=== PATIENT | male | born 1955 | race Caucasian/White ===

== ENCOUNTER 2023-11-15 21:43 | Inpatient (IN) | payer MEDICARE, OTHER ==
[~2023-11-15] VITALS: Ht 182.9 cm; Wt 70.8 kg
[2023-11-16] MEDS ORDERED: SERT-162 PO (00:09)
[2023-11-16] MEDS ORDERED: CARV6 PO (00:09)
[2023-11-16] MEDS ORDERED: ATOR40TA28 PO (00:09)
[2023-11-16] MEDS ORDERED: TICA90TA PO (00:09)
[2023-11-16] MEDS ORDERED: EZET10TA57 PO (00:09)
[2023-11-16] MEDS ORDERED: AMLO-258 PO (00:09)
[2023-11-16] MEDS ORDERED: SENN-376 PO (00:09)
[2023-11-16] MEDS ORDERED: FINA-27 PO (00:09)
[2023-11-16] MEDS ORDERED: TAMS0.4C94 PO (00:09)
[2023-11-16] MEDS ORDERED: LANS-78 PO (00:09)
[2023-11-16] MEDS ORDERED: LOSA-382 PO (00:09)
[2023-11-16] MEDS ORDERED: BUPR-514 PO (00:09)
[2023-11-16] MEDS ORDERED: ASPI-1450 PO (00:09)
[2023-11-16] MEDS ORDERED: MELA5TAB40 PO (00:09)
[2023-11-16 00:16] LABS: BASOPHILS % (AUTO) 0.8 % (0.0-2.0); EOSINOPHILS % (AUTO) 3.8 % (1.0-6.0); HEMATOCRIT 36.1 % (41-53); HEMOGLOBIN 11.5 g/dL (13.5-17.5); LYMPHOCYTES # (AUTO) 2.7 K/uL (1.0-4.8); LYMPHOCYTES % (AUTO) 29.7 % (22.0-44.0); MEAN CORPUSCULAR HEMOGLOBIN 25.8 pg (26.0-34.0); MEAN CORPUSCULAR HGB CONC 31.7 G/dL (31.0-37.0); MEAN CORPUSCULAR VOLUME 81 fL (80-100); MONOCYTES # (AUTO) 0.8 K/uL (0.1-1.0); MONOCYTES % (AUTO) 8.6 % (2.0-9.0); NEUTROPHILS # (AUTO) 5.2 K/uL (1.8-7.7); NEUTROPHILS % (AUTO) 57.1 % (40.0-70.0); PLATELET COUNT (AUTO) 189 K/uL (150-450); RED BLOOD CELL COUNT(AUTO) 4.44 MIL/uL (4.50-5.90); RED CELL DISTRIBUTION WIDTH 17.1 % (11.5-14.5); WHITE BLOOD COUNT (AUTO) 9.2 K/uL (4.5-11.0)
[2023-11-16 00:21] LABS: ANION GAP 9 mmol/L (8-16); CALCIUM, TOTAL 9.1 mg/dL (8.8-10.5); CARBON DIOXIDE 27 mmol/L (22-29); CHLORIDE 105 mmol/L (98-107); CREATININE 1.72 mg/dL (0.60-1.30); GLOMERULAR FILTR. RATE CALC 40 mL/min (>60); GLUCOSE,RANDOM 102 mg/dL (70-110); POTASSIUM 3.8 mmol/L (3.5-5.1); SODIUM SERUM 141 mmol/L (136-145); UREA NITROGEN, BLOOD 31 mg/dL (7-18)
[2023-11-16 00:35] LABS: ALCOHOL, BLOOD (SERUM) < 3 mg/dL (0-10)
[2023-11-16 01:00] LABS: COVID AG,FIA SOURCE NASAL SWAB
[2023-11-16 01:30] LABS: SARS-COV2 (COVID) ANTIGEN,FIA Negative (Negative)
[2023-11-16] MEDS ORDERED: ZOLPIDEM TARTRATE 10 MG TABLET PO PRN (10:45)
[2023-11-16] MEDS ORDERED: LORazepam 2 MG TABLET PO PRN (11:00)
[2023-11-16] MEDS ORDERED: HALOPERIDOL 5 MG TABLET PO PRN (11:00)
[2023-11-16] MEDS ORDERED: LEVE750T10 PO (11:10)
[2023-11-16 13:08] VITALS: O2SAT 99
[2023-11-16 15:36] LABS: APPEARANCE,URINE TURBID (CLEAR); BILIRUBIN,URINE NEGATIVE (NEGATIVE); COLOR,URINE YELLOW (YELLOW); GLUCOSE, URINE (UA) NEGATIVE (NEGATIVE); KETONES,URINE NEGATIVE (NEGATIVE); LEUKOCYTE ESTERASE ,URINE LARGE (NEGATIVE); NITRATE,URINE NEGATIVE (NEGATIVE); OCCULT BLOOD,URINE SMALL (NEGATIVE); PROTEIN,URINE 100-200,SEE CONFIRM mg/dL (NEGATIVE); SPECIFIC GRAVITIY, URINE 1.013 (1.003-1.030); UROBILINOGEN,URINE <=1.0 mg/dL (<=1.0)
[2023-11-16 15:43] LABS: ALCOHOL, URINE DRUG SCREEN NEGATIVE (NEGATIVE); AMPHET/METH SCREEN,URINE NEGATIVE (NEGATIVE); BARBITURATE SCREEN, URINE NEGATIVE (NEGATIVE); BENZODIAZEPINES SCREEN,URINE NEGATIVE (NEGATIVE); CANNABINOID SCREEN,URINE NEGATIVE (NEGATIVE); COCAINE SCREEN,URINE NEGATIVE (NEGATIVE); METHADONE SCREEN, URINE NEGATIVE (NEGATIVE); OPIATE SCREEN,URINE NEGATIVE (NEGATIVE); PHENCYCLIDINE SCREEN,URINE NEGATIVE (NEGATIVE)
[2023-11-16 15:45] LABS: BACTERIA,URINE Few /HPF (None Seen); SQUAMOUS EPITHELIAL CELL,UR Rare /LPF (None Seen); SULFOSALICYLIC ACID,URINE 3+ (Negative); WBC,URINE 51-100 /HPF (0-5)
[2023-11-16] MEDS: CARVEDILOL 6.25 MG TABLET PO SCH (17:44)
[2023-11-16] MEDS: PANTOPRAZOLE SODIUM 40 MG DR TABLET PO SCH (17:44)
[2023-11-16] MEDS: TICAGRELOR 90 MG TABLET PO SCH (17:45)
[2023-11-16 18:02] VITALS: BP 170/83; PULSE 85; RESP 18; TEMP 97.4; O2SAT 97
[2023-11-16] MEDS ORDERED: INFLUENZA VIRUS VACCINE TVS (6MO+) 2024-25/PF 45 MCG/0.5 ML SYRINGE IM. ONE (18:30)
[2023-11-16] MEDS ORDERED: MAG HYDROX/ALUMINUM HYD/SIMETH ES 30 ML SUSPENSION UDCUP PO PRN (20:00)
[2023-11-16] MEDS ORDERED: MAGNESIUM HYDROXIDE SUSPENSION 30 ML UDCUP PO PRN (20:00)
[2023-11-16] MEDS ORDERED: HydrOXYzine PAMOATE 50 MG CAPSULE PO PRN (20:00)
[2023-11-16] MEDS ORDERED: LOPERAMIDE HCL 2 MG CAPSULE PO PRN (20:00)
[2023-11-16] MEDS ORDERED: PROMETHAZINE HCL 25 MG TABLET PO PRN (20:00)
[2023-11-16] MEDS ORDERED: GuaiFENesin/D-METHORPHAN [SUGAR-FREE] 200-20MG/10 ML SYRUP UDCUP PO PRN (20:00)
[2023-11-16] MEDS ORDERED: TUBERCULIN, PURIFIED PROTEIN DERIVATIVE 5 TU/0.1 ML SYRINGE ID ONE (20:00)
[2023-11-16 20:16] VITALS: BP 165/92; PULSE 79; RESP 18; TEMP 97.4; O2SAT 97
[2023-11-16] MEDS: FINASTERIDE 5 MG TABLET PO SCH (21:07)
[2023-11-16] MEDS: ATORVASTATIN CALCIUM 40 MG TABLET PO SCH (21:07)
[2023-11-16] MEDS: EZETIMIBE 10 MG TABLET PO SCH (21:07)
[2023-11-16] MEDS: TAMSULOSIN HCL 0.4 MG CAPSULE PO SCH (21:07)
[2023-11-16] MEDS: MELATONIN 5 MG TABLET PO SCH (21:41)
[2023-11-17] VITALS (7 sets, daily range): BP systolic 140–160; BP diastolic 75–94; PULSE 66–84; RESP 17–19; TEMP 97–98.1; O2SAT 96–100
[2023-11-17 08:16] LABS: HEMOGLOBIN A1C 5.9 % (3.8-5.6)
[2023-11-17 08:32] LABS: FREE T4 (FREE THYROXINE) 0.83 ng/dL (0.76-1.46); THYROID STIMULATING HORMONE 5.08 uIU/mL (0.36-3.74)
[2023-11-17] MEDS: OMEGA-3/DHA/EPA/FISH OIL 1,000 MG CAPSULE PO SCH (10:46)
[2023-11-17] MEDS: MULTIVITAMINS WITH MINERALS, THERAPEUTIC TABLET PO SCH (10:46)
[2023-11-17] MEDS: FOLIC ACID 1 MG TABLET PO SCH (10:46)
[2023-11-17] MEDS: THIAMINE 100 MG TABLET PO SCH (10:46)
[2023-11-17] MEDS: FLUoxetine HCL 20 MG CAPSULE PO SCH (10:46)
[2023-11-17] MEDS: AmLODIPine BESYLATE 5 MG TABLET PO SCH (10:47)
[2023-11-17] MEDS: ASPIRIN 81 MG CHEWABLE TABLET PO SCH (10:47)
[2023-11-17] MEDS: LOSARTAN POTASSIUM 50 MG TABLET PO SCH (10:48)
[2023-11-17] MEDS: ACETAMINOPHEN 325 MG TABLET PO PRN (14:39)
[2023-11-18 06:22] VITALS: BP 148/80; PULSE 80; RESP 18; TEMP 97.5; O2SAT 100
[2023-11-18] MEDS: SERTRALINE HCL 50 MG TABLET PO SCH (09:22)
[2023-11-18 09:44] VITALS: BP 148/79; PULSE 76; RESP 19; TEMP 98; O2SAT 97
[2023-11-18 20:35] VITALS: BP 135/83; PULSE 88; RESP 19; TEMP 98.1; O2SAT 97
[2023-11-18 20:53] VITALS: BP 135/83; PULSE 88; RESP 19; TEMP 98.1; O2SAT 96
[2023-11-19] MEDS: SERTRALINE HCL 50 MG TABLET PO SCH (09:23)
[2023-11-19 17:41] VITALS: PULSE 80; RESP 18; TEMP 98.4
[2023-11-19 21:20] VITALS: BP 139/77; PULSE 70; RESP 18; TEMP 97.6; O2SAT 96
[2023-11-20 11:09] VITALS: BP 143/90; PULSE 67; RESP 18; TEMP 97.9; O2SAT 98
[2023-11-20 21:51] VITALS: BP 144/80; PULSE 72; RESP 18; TEMP 97.4; O2SAT 98
[2023-11-21 08:21] VITALS: BP 136/90; PULSE 67; RESP 16; TEMP 98.1; O2SAT 98
[2023-11-21 16:58] VITALS: BP 138/87; PULSE 71; RESP 17; TEMP 97.7; O2SAT 97
[2023-11-21 21:35] VITALS: BP 149/94; PULSE 73; RESP 18; TEMP 98.1; O2SAT 95
[2023-11-22 10:29] VITALS: TEMP 98
[2023-11-22] MEDS ORDERED: SERT-439 PO (10:34)
[2023-11-22] MEDS ORDERED: MELA5TAB40 PO (10:34)
[2023-11-22] MEDS ORDERED: OMEG100033 PO (10:34)
[2023-11-22] MEDS: ALBUTEROL SULFATE HFA 90 MCG/PUFF 8 GM INHALER IH PRN (13:59)
[2023-11-22] MEDS: CIPROFLOXACIN HCL 500 MG TABLET PO SCH (19:24)
[2023-11-22 20:49] VITALS: TEMP 97.3
[2023-11-23] MEDS ORDERED: CIPR500T10 PO (12:36)
[2023-11-23] MEDS ORDERED: PANT-31 PO (12:37)
== END 2023-11-23 15:10 | DRG 885 ==
LOC: EMS 21:43 → 3EX 11-16 16:47 → 3EI 11-19 10:31
PROVIDERS: ADMIT Psychiatry & Neurology Psychiatry; ATTEND Psychiatry & Neurology Psychiatry
PROC: GZHZZZZ Group Psychotherapy (ICD-10-PCS; principal; 2023-11-16)
PROC: GZ58ZZZ Individual Psychotherapy, Cognitive-Behavioral (ICD-10-PCS; 2023-11-16)
DX: F33.2 Major depressive disorder, recurrent severe without psychotic features (principal); F06.30 Mood disorder due to known physiological condition, unspecified; N18.9 Chronic kidney disease, unspecified; R45.851 Suicidal ideations; N39.0 Urinary tract infection, site not specified; I12.9 Hypertensive chronic kidney disease with stage 1 through stage 4 chronic kidney disease, or unspecified chronic kidney disease; K21.9 Gastro-esophageal reflux disease without esophagitis; Z20.822 Contact with and (suspected) exposure to COVID-19; N40.0 Benign prostatic hyperplasia without lower urinary tract symptoms; E78.00 Pure hypercholesterolemia, unspecified; D64.9 Anemia, unspecified; I71.40 Abdominal aortic aneurysm, without rupture, unspecified; G40.409 Other generalized epilepsy and epileptic syndromes, not intractable, without status epilepticus; Z63.9 Problem related to primary support group, unspecified; Z59.9 Problem related to housing and economic circumstances, unspecified; Z65.3 Problems related to other legal circumstances; Z55.9 Problems related to education and literacy, unspecified; Z79.82 Long term (current) use of aspirin; Z79.02 Long term (current) use of antithrombotics/antiplatelets; Z86.73 Personal history of transient ischemic attack (TIA), and cerebral infarction without residual deficits; Z79.899 Other long term (current) drug therapy; Z91.199 Patient's noncompliance with other medical treatment and regimen due to unspecified reason
CPT/HCPCS: 70450; 80048; 80061; 80307; 81001; 81002; 83036; 84439; 84443; 85025; 86592; 87081; 87086; 87186; 97110; 97163; 97166; 97530; 97535; 99285; G0378; G0480; J3535